=== PATIENT | female | born 1965 | race Two or more races ===

== ENCOUNTER 2018-07-08 09:02 | Emergency (ER) | payer BC ==
[2018-07-08] MEDS ORDERED: Acetaminophen/HYDROcodone 325-5 MG Tab PO ONE (09:52)
--- NOTE | 2018-07-08 09:57 | EDM.PDOC ---
ED HPI GENERAL MEDICAL PROBLEM - General Chief Complaint: Upper Extremity Injury/Pain Stated Complaint: RT SHOULDER PAIN Time Seen by Provider: 07/08/18 09:24 Source of Information: Reports: Patient History Limitations: Reports: No Limitations - History of Present Illness INITIAL COMMENTS - FREE TEXT/NARRATIVE: Patient is a 53-year-old female presents ED complaining of right shoulder pain that started approximately 11 days ago after performing [place] kettle ball swings while doing a TRX program. Developed pain to the posterior, lateral, and anterior aspect of the right shoulder with limited range of motion since. Pain is mostly isolated to the lateral and anterior aspects shoulder. Again this occurred 3 days ago and she has been limiting her exercises to the affected extremity. She has been taken ibuprofen with some relief. She has no prior history of injury to the right shoulder. She has increasing pain with attempting to lift her arm above the shoulder. She denies any giving out of the shoulder with lifting her arm. She also complains some intermittent numbness along the lateral aspect of her upper arm. There is no sensation changes distally. No pain to the right elbow, forearm, wrist, hand. No numbness or tingling to her hand noted. She has not noticed any weakness discrepancies. Right Shoulder Pain Score (Numeric/FACES): 8 - Related Data Allergies Allergy/AdvReac Type Severity Reaction Status Date / Time No Known Allergies Allergy Verified 07/08/18 09:22 Home Meds: Home Meds Losartan [Cozaar] 25 mg PO DAILY 07/08/18 [History] tiZANidine HCl [Zanaflex] 2 mg PO BID PRN #20 capsule 07/08/18 [Rx] traMADol [Ultram] 50 mg PO Q6H PRN #20 tab 07/08/18 [Rx] Past Medical History - Past Health History Medical/Surgical History: Denies Medical/Surgical History Social & Family History - Tobacco Use Smoking Status *Q: Never Smoker - Caffeine Use Caffeine Use: Reports: Coffee - Recreational Drug Use Recreational Drug Use: No Review of Systems - Review of Systems Review Of Systems: ROS reveals no pertinent complaints other than HPI. ED EXAM, GENERAL - Physical Exam Exam: See Below Exam Limited By: Language Barrier General Appearance: Alert, WD/WN, No Apparent Distress Eye Exam: Bilateral Eye: Normal Inspection Ears: Hearing Grossly Normal Nose: Normal Inspection Throat/Mouth: Normal Voice, No Airway Compromise Head: Atraumatic, Normocephalic Neck: Normal Inspection, Supple, Full Range of Motion, Tender Lateral (On the right trapezius muscle. No midline cervical neck pain.) Respiratory/Chest: No Respiratory Distress, Lungs Clear, Normal Breath Sounds, No Accessory Muscle Use, Chest Non-Tender Cardiovascular: Normal Peripheral Pulses, Regular Rate, Rhythm, No Murmur Peripheral Pulses: 2+: Radial (L), Radial (R) Back Exam: Normal Inspection, Full Range of Motion. No: Paraspinal Tenderness, Vertebral Tenderness Extremities: Normal Inspection, No Pedal Edema, Limited Range of Motion (Right shoulder), Other (Pain along the posterior aspect of the right shoulder along the trapezius muscle. No pain along the scapula. Pain along the lateral aspect of the shoulder and into the anterior aspect of the shoulder. No bony antibiotics noted. There is no swelling, bruising, or redness noted. No sensory deficits noted. No pain with palpation of the elbow, forearm, wrist, hand. Trimmer Machine is intact. No weakness discrepancies with hand stapler in comparison to the left. She has limited both active and passive range of motion the right shoulder. We have difficulty testing for passive range of motion since the patient will not relax completely. Pain is isolated to the lateral and anterior asked the shoulder with any Active range of motion. She does not want to lift the shoulder above her head. With provocative testing inconclusive since she is not cooperative and has discomfort.) Course - Vital Signs Last Recorded V/S: Last Vital Signs Temp 98.0 F 07/08/18 09:18 Pulse 87 07/08/18 09:18 Resp 15 07/08/18 09:18 BP 134/87 07/08/18 09:18 Pulse Ox 100 07/08/18 09:18 - Orders/Labs/Meds Meds: Medications Discontinued Medications Generic Name Dose Route Start Last Admin Trade Name Freq PRN Reason Stop Dose Admin Hydrocodone Bitart/Acetaminophen 1 tab 07/08/18 09:52 07/08/18 10:02 [place] 325-5 Mg PO 07/08/18 09:53 1 tab ONETIME ONE Administration - Re-Assessments/Exams Free Text/Narrative Re-Assessment/Exam: On examination of the right shoulder, provocative testing is limited since the patient has discomfort both with active range/passive range of motion.There are no bony abnormalities noted with examination of the right and left shoulder. No imaging is required. This all took place after performing [place] [employer] ball swings. Initial injury took place 11 days ago. Patient continues to exercise but limits the exercises to the upper extremities. Pain has been persistent and unchanged. She has been using ibuprofen with little to no relief. I am concerned that she has strained the deltoid and possibly has rotator cuff involvement. I ordered [place] 5/325 one tab by mouth to help with the pain. I'll refer the patient to physical therapy for evaluation and treatment. In addition we'll have patient see orthopedic of her choice in the next 10 days for reevaluation and determine further need for MRI. Patient had no further questions or concerns and agreed with plan. Departure - Departure Time of Disposition: 09:57 Disposition: Home, Self-Care 01 Condition: Good Clinical Impression: Right shoulder strain Qualifiers: Encounter type: initial encounter Qualified Code(s): S46.911A - Strain of unspecified muscle, fascia and tendon at shoulder and upper arm level, right arm , initial encounter Rotator cuff injury Qualifiers: Encounter type: initial encounter Laterality: right Qualified Code(s): S46.001A - Unspecified injury of muscle(s) and tendon(s) of the rotator cuff of right shoulder, initial encounter - Discharge Information Prescriptions: tiZANidine HCl [Zanaflex] 2 mg PO BID PRN #20 capsule PRN Reason: Pain traMADol [Ultram] 50 mg PO Q6H PRN #20 tab PRN Reason: Pain (Severe 7-10) Instructions: Shoulder Pain, [id number], Muscle Strain, [id number] Referrals: PCP,Unknown [Primary Care Provider] - Forms: ED Department Discharge, ED Return to Work/School Form Additional Instructions: Take the zanaflex as prescribed twice a day for shoulder discomfort. May utilize Tylenol and ibuprofen in alternating fashion for mild to moderate discomfort. For severe pain take tramadol 1 tab every 6 hours as needed. Refrain from any activities that cause worsening discomfort. Apply ice to affected area 4 times a day, 30 minutes in duration, do not apply ice directly on the skin. May utilize gentle massage to the affected areas as needed throughout the day. Referral for physical therapy evaluation and treatment has been placed. They will call you with appointment time. Please call and make an appointment with orthopedic surgeon of your choice to be evaluated in the next 10 days. Please return back to ED if you develop any new or worsening symptoms. Do not drive today since receiving a sedative medication for the pain. Do not drive while taking the Zanaflex and tramadol
== END 2018-07-08 10:21 | disposition home or self-care (01) ==
LOC: JD.ED 09:02
DX: S46.011A Strain of muscle(s) and tendon(s) of the rotator cuff of right shoulder, initial encounter (principal); X50.9XXA Other and unspecified overexertion or strenuous movements or postures, initial encounter; Y93.79 Activity, other specified sports and athletics
CPT/HCPCS: 99283; A9270